=== PATIENT | female | born 1985 | race Caucasian/White ===

== ENCOUNTER 2016-12-17 19:53 | Inpatient (IN) | payer BC ==
[2016-12-17] MEDS ORDERED: Sodium Chloride 0.9% 2.5 ML Syringe FLUSH PRN (20:04)
[2016-12-17] MEDS ORDERED: Lidocaine 1% 50 ML MDV INJECT PRN (20:04)
[2016-12-17] MEDS ORDERED: Butorphanol 1 MG/ML SDV IVPUSH PRN (20:04)
[2016-12-17] MEDS ORDERED: Nalbuphine 10 MG/1 ML Vial IVPUSH PRN (20:04)
[2016-12-17] MEDS ORDERED: Sodium Chloride 0.9% 10 ML Syringe FLUSH PRN (20:04)
[2016-12-17] MEDS ORDERED: Water For Irrigation,Sterile 1,000 ML Container IRR PRN (20:04)
[2016-12-17] MEDS ORDERED: Misoprostol 200 MCG Tab PO PRN (20:04)
[2016-12-17] MEDS ORDERED: Carboprost Tromethamine 250 MCG/1 ML Amp IM PRN (20:04)
[2016-12-17] MEDS ORDERED: Methylergonovine 0.2 MG/1 ML Amp IM PRN (20:04)
[2016-12-17] MEDS ORDERED: Ampicillin 2 GM in Sodium Chloride 0.9% 50 ML IV ONE (20:15)
[2016-12-17] MEDS ORDERED: Oxytocin/0.9 % Sodium Chloride 30 UNIT/500 ML BAG IV SCH ×2 (20:15→22:30)
[2016-12-17] MEDS: Lactated Ringers 1,000 ML IV SCH ×3 (20:17→21:33)
[2016-12-17] MEDS ORDERED: Ampicillin 2 GM in Sodium Chloride 0.9% 100 ML IV ONE ×2 (20:27→20:29)
--- NOTE | 2016-12-17 20:39 | PCM.PREANE ---
Preanesthetic Assessment - Procedure Proposed Procedure: ADRI - Anesthesia/Transfusion/Family Hx Anesthesia History: No Prior Anesthesia Other Type of Anesthesia Reaction Comment: Denies any known problems in past Family History of Anesthesia Reaction: No - Review of Systems General: No Symptoms Pulmonary: No Symptoms Cardiovascular: No Symptoms Gastrointestinal: No Symptoms Neurological: No Symptoms Other: Reports: None - Physical Assessment Height: 1.75 m Weight: 84.368 kg ASA Class: 1 Mental Status: Alert & Oriented x3 Airway Class: Mallampati = 2 Dentition: Reports: Normal Dentition Thyro-Mental Finger Breadths: 3 Mouth Opening Finger Breadths: 4 ROM/Head Extension: Full Lungs: Clear to Auscultation, Normal Respiratory Effort Cardiovascular: Regular Rate, Regular Rhythm - Lab Values: Laboratory Last Values WBC 12.19 K/uL (4.0-11.0) H 12/17/16 20:17 RBC 3.86 M/uL (4.30-5.90) L 12/17/16 20:17 Hgb 12.4 g/dL (12.0-16.0) 12/17/16 20:17 Hct 35.3 % (36.0-46.0) L 12/17/16 20:17 MCV 91.5 fL (80.0-98.0) 12/17/16 20:17 MCH 32.1 pg (27.0-32.0) H 12/17/16 20:17 MCHC 35.1 g/dL (31.0-37.0) 12/17/16 20:17 RDW Std Deviation 43.7 fl (28.0-62.0) 12/17/16 20:17 RDW Coeff of Tomas 13 % (11.0-15.0) 12/17/16 20:17 Plt Count 207 K/uL (150-400) 12/17/16 20:17 MPV 11.00 fL (7.40-12.00) 12/17/16 20:17 Nucleated RBC % 0.0 /100WBC 12/17/16 20:17 Nucleated RBCs # 0 K/uL 12/17/16 20:17 - Allergies Allergies/Adverse Reactions: Allergies Allergy/AdvReac Type Severity Reaction Status Date / Time nickel Allergy Itching Verified 12/13/14 14:17 Oral Pain medication Allergy Vomiting Uncoded 10/07/15 14:17 - Blood Blood Available: Yes Product(s) Available: PRBC - Anesthesia Plan Pre-Op Medication Ordered: None - Acknowledgements Anesthesia Type Planned: Epidural Pt an Appropriate Candidate for the Planned Anesthesia: Yes Alternatives and Risks of Anesthesia Discussed w Pt/Guardian: Yes Pt/Guardian Understands and Agrees with Anesthesia Plan: Yes PreAnesthesia Questionnaire - Past Health History Medical/Surgical History: Denies Medical/Surgical History HEENT History: Reports: None Cardiovascular History: Reports: None Respiratory History: Reports: None Gastrointestinal History: Reports: None Genitourinary History: Reports: None POLICE ARTIST History: Reports: Other OB/BYN History: LMP 12/09/14 Musculoskeletal History: Reports: None Other Musculoskeletal History: hx: fractured Left clavicle, Femur, Ankle, Toe Psychiatric History: Reports: None Other Psychiatric History: 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), ADD Endocrine/Metabolic History: Reports: None Hematologic History: Reports: None - Past Surgical History Head Surgeries/Procedures: Reports: None Other HEENT Surgeries/Procedures: Spring teeth - SUBSTANCE USE Smoking Status *Q: Never Smoker Recreational Drug Use History: No - HOME MEDS Home Medications: Home Meds Dextroamphetamine/Amphetamine [Dextroamp-Amphet ER] 1 tab PO DAILY 12/13/14 [ History] Multivitamin [Multi-Vitamin Daily] 1 tab PO DAILY 12/13/14 [History] Acetaminophen/HYDROcodone [[place] 325-5 MG] 1 - 2 tab PO Q4H PRN #80 tablet 12/15 [Rx] - CURRENT (IN HOUSE) MEDS Current Meds: Current Medications Butorphanol Tartrate (Stadol) 1 mg IVPUSH Q1H PRN PRN Reason: Pain Carboprost Tromethamine (Hemabate Ds) 250 mcg IM ASDIRECTED PRN PRN Reason: Post Hemorrhage Ampicillin Sodium 1 gm/ Sodium (Chloride) 50 mls @ 100 mls/hr IV Q4H GIUSEPPE Lactated Ringer's (Ringers, Lactated) 1,000 mls @ 150 mls/hr IV ASDIRECTED GIUSEPPE Oxytocin/Sodium Chloride (Oxytocin 30 Unit/500 Ml-Ns) 30 unit in 500 mls @ 999 mls/hr IV TITRATE GIUSEPPE Ampicillin Sodium 2 gm/ Sodium (Chloride) 100 mls @ 200 mls/hr IV ONETIME ONE Stop: 12/17/16 20:44 Last Admin: 12/17/16 20:30 Dose: 200 mls/hr Lidocaine HCl (Xylocaine 1%) 50 ml INJECT .ONCE PRN PRN Reason: Laceration repair Methylergonovine Maleate (Methergine) 0.2 mg IM ASDIRECTED PRN PRN Reason: Post Hemorrhage Misoprostol (Cytotec) 200 mcg PO .ONCE PRN PRN Reason: Post Hemorrhage Nalbuphine HCl (Nubain) 10 mg IVPUSH Q1H PRN PRN Reason: Pain (severe 7-10) Sodium Chloride (Saline Flush) 10 ml FLUSH ASDIRECTED PRN PRN Reason: Keep Vein Open Sodium Chloride (Saline Flush) 2.5 ml FLUSH ASDIRECTED PRN PRN Reason: Keep Vein Open Sterile Water (Sterile Water For Irrigation) 1,000 ml IRR ASDIRECTED PRN PRN Reason: delivery Discontinued Medications Ampicillin Sodium 2 gm/ Sodium (Chloride) 50 mls @ 100 mls/hr IV ONETIME ONE Stop: 12/17/16 20:44 Ampicillin Sodium 2 gm/ Sodium (Chloride) 100 mls @ 200 mls/hr IV ONETIME ONE Stop: 12/17/16 20:44
[2016-12-17] MEDS ORDERED: Ropivacaine HCl/PF 100 ML ONE (20:40)
[2016-12-17] MEDS ORDERED: fentaNYL 100 MCG/2 ML SDV ONE (20:40)
[2016-12-17] MEDS ORDERED: Misoprostol 25 MCG (1/4 of 100 MCG) Tab VAG PRN (22:27)
[2016-12-17] MEDS ORDERED: Terbutaline 1 MG/ML SDV SUBCUT PRN (22:27)
[2016-12-17] MEDS ORDERED: Misoprostol 25 MCG (1/4 of 100 MCG) Tab VAG SCH (22:30)
[2016-12-18] MEDS ORDERED: Ampicillin 1 GM in Sodium Chloride 0.9% 50 ML IV SCH ×2
[2016-12-18] MEDS: Lactated Ringers 1,000 ML IV SCH (01:33)
[2016-12-18] MEDS ORDERED: Bisacodyl 10 MG Supp RECTAL PRN (03:22)
[2016-12-18] MEDS ORDERED: oxyCODONE 5 MG Tab PO PRN (03:22)
[2016-12-18] MEDS ORDERED: Ibuprofen 400 MG Tab PO PRN (03:22)
[2016-12-18] MEDS ORDERED: Benzocaine/Menthol 20%-0.5% Spray 78 GM Cannister TOP PRN (03:22)
[2016-12-18] MEDS ORDERED: Acetaminophen 500 MG Tab PO PRN (03:22)
[2016-12-18] MEDS: Witch Hazel Medicated Pads 40/Jar TOP PRN (04:45)
[2016-12-18] MEDS: Lanolin 100% Cream 7 GM Tube TOP PRN (04:46)
[2016-12-18] MEDS: Ibuprofen 800 MG Tab PO PRN ×3 (04:47→16:54)
--- NOTE | 2016-12-18 06:04 | OR ---
SURGEON: Sushma Rene MD DATE OF PROCEDURE: 12/18/2016 DELIVERY NOTE PREOPERATIVE DIAGNOSES: 1. Term at 39 weeks and 2 days. 2. Spontaneous labor. 3. GBS positive. POSTOPERATIVE DIAGNOSES: 1. Term at 39 weeks and 2 days. 2. Spontaneous labor. 3. GBS positive. 4. Delivered. PROCEDURE: 1. Vacuum-assisted vaginal delivery. 2. Repair of third-degree perineal laceration, Type 3C. ANESTHESIA: Epidural. ESTIMATED BLOOD LOSS: 200 mL. COMPLICATIONS: None. DISPOSITION: Mother and baby stable in Labor and Delivery room, [facility]. FINDINGS: Male , weight 3660grams, Apgars 9 and 9 at 1 and 5 minutes respectively. Grossly normal placenta with 3-vessel cord. Midline third-degree laceration, type 3C. BRIEF HISTORY: Sugar is a primigravida who was admitted at 39 weeks and 1 day gestation with a history of regular contraction with mild spotting. Denied leakage of fluid and reported active status. was conceived via IVF. Otherwise, her care was uncomplicated. She is GBS positive. PROCEDURE IN DETAIL: On admission at 8 p.m. on the 17 of December, she was found to be 6 cm dilated, 100% effaced, at station +1, with intact membrane. She was admitted,routine intrapartum labs were drawn and antibiotics, Ampicillin was commenced for GBS prophylaxis. The patient requested and received epidural for pain management. Shortly after the epidural was placed, she was re-examined and found to be 8 cm dilated with bulging membrane, spontaneous rupture of membranes occurred with clear amniotic fluid. She progressed to full dilatation and commenced active pushing. With pushing, she was noted to have recurrent late decelerations with slow recovery. She continued to push but maternal effort was not great, she eventually brought the baby's head down to a +3 station after approximately 2 hours of pushing, but became quite exhausted and just could not move the head further than +3 station. The strip continued to be a category 2 with late decelerations noted. Discussed with the patient and recommended a vacuum extraction due to non-reassuring heart tracing in second stage of labor with maternal exhaustion,the patient readily accepted. Risks of vacuum extraction including but not limited to perineal laceration, cephalhematoma, scalp injuries were discussed with the patient. Dr. Jeffrey, the personal carer video control operator, was present in the room. I re-examined the patient, confirming position of DARRIN at +3 station. The Nunez bulb was deflated and removed. She was set up for delivery in modified dorsal lithotomy position. The kiwi vacuum cup was applied on the flexion point of the head at 0229 hours.Coordinating her with contractions and expulsive effort, gentle traction was applied along the pelvic curve. Delivery of head was achieved with the second contraction at 0231 hours with no popoffs. Loose nuchal cord was reduced. The anterior and the posterior shoulders were delivered without difficulty. Baby was vigorous and cried spontaneously at . The baby was delivered onto the maternal abdomen with Dr. Jeffrey's consent. Delayed cord clamping was performed, cord was then double clamped and subsequently cut by the father of the baby. Cord blood and gas samples were obtained. With delivery of the infant, oxytocin infusion, titration was commenced for active management of third stage of labor. Placenta was delivered by controlled cord traction and appeared to be complete and intact. Examination of the perineum revealed a midline third-degree laceration involving the external sphincter and the internal sphincter. The edges of the internal sphincter were identified and this was reapproximated with 3-0 Vicryl using 2 interrupted stitches. The fibers of the external sphincter were identified, and using end-to-end technique, these fibers were reapproximated with 3-0 PDS sutures placing 3 stitches. The rest of the laceration was repaired in a routine fashion in 3 layers using 2-0 Vicryl suture. Continuous nonlocking stitches were used to reapproximate the vaginal wall and interrupted stitches were used to approximate the perineal muscles. Subcuticular stitches were used to repair the skin. Rectal exam was performed and good anal sphincter tone was noted. Uterine massage was performed and the uterus was found to be well contracted below the umbilicus The patient tolerated the procedure well. Sponge, instrument, and needle counts were correct at the end of the procedure. ADUMVIV / MODL /[id number] MTDHamilton
--- NOTE | 2016-12-18 07:50 | PCM48HPAN ---
Post Anesthesia Note - EVALUATION WITHIN 48HRS OF ANESTHETIC Vital Signs in Normal Range: Yes Patient Participated in Evaluation: Yes Respiratory Function Stable: Yes Airway Patent: Yes Cardiovascular Function Stable: Yes Hydration Status Stable: Yes Pain Control Satisfactory: Yes Nausea and Vomiting Control Satisfactory: Yes Mental Status Recovered: Yes
--- NOTE | 2016-12-18 08:45 | PCM.PNPP ---
- General Info Date of Service: 12/18/16 Functional Status: Reports: Pain Controlled, Tolerating Diet. Denies: Urinating (difficulty urinating feels that bladder is very full.) - Review of Systems General: Reports: No Symptoms HEENT: Reports: No Symptoms Pulmonary: Reports: No Symptoms Cardiovascular: Reports: No Symptoms Gastrointestinal: Reports: No Symptoms Genitourinary: Reports: No Symptoms Musculoskeletal: Reports: No Symptoms Skin: Reports: No Symptoms Neurological: Reports: No Symptoms Psychiatric: Reports: No Symptoms - Patient Data Vital Signs - Most Recent: Last Vital Signs Temp 37.3 C 12/18/16 06:10 Pulse 60 12/18/16 06:10 Resp 18 12/18/16 06:10 BP 97/43 L 12/18/16 06:10 Pulse Ox 100 12/18/16 06:10 Weight - Most Recent: 84.368 kg I&O - Last 24 Hours: Intake & Output 12/17/16 12/18/16 12/18/16 22:59 06:59 14:59 Intake Total 2100 1150 Balance 2100 1150 Lab Results - Last 24 Hours: Laboratory Results - last 24 hr 12/17/16 12/17/16 Range/Units 20:17 20:17 WBC 12.19 H (4.0-11.0) K/uL RBC 3.86 L (4.30-5.90) M/uL Hgb 12.4 (12.0-16.0) g/dL Hct 35.3 L (36.0-46.0) % MCV 91.5 (80.0-98.0) fL MCH 32.1 H (27.0-32.0) pg MCHC 35.1 (31.0-37.0) g/dL RDW Std Deviation 43.7 (28.0-62.0) fl RDW Coeff of Tomas 13 (11.0-15.0) % Plt Count 207 (150-400) K/uL MPV 11.00 (7.40-12.00) fL Nucleated RBC % 0.0 /100WBC Nucleated RBCs # 0 K/uL Blood Type O POSITIVE Antibody Screen NEGATIVE Med Orders - Current: Current Medications Acetaminophen (Tylenol Extra Strength) 500 mg PO Q4H PRN PRN Reason: Pain Acetaminophen (Tylenol Extra Strength) 1,000 mg PO Q4H PRN PRN Reason: Pain Benzocaine/Menthol (Dermoplast Pain Relief 20%-0.5% [place]) 78 gm TOP ASDIRECTED PRN PRN Reason: Perineal Comfort Measure Last Admin: 12/18/16 04:46 Dose: 1 canister Bisacodyl (Dulcolax) 10 mg RECTAL .ONCE PRN PRN Reason: Constipation Docusate Sodium (Colace) 100 mg PO BID [facility] Emollient Ointment (Lansinoh Hpa) 0 gm TOP ASDIRECTED PRN PRN Reason: Sore Nipples Last Admin: 12/18/16 04:46 Dose: 1 tube Ibuprofen (Motrin) 400 mg PO Q4H PRN PRN Reason: Pain Ibuprofen (Motrin) 800 mg PO Q6H PRN PRN Reason: Pain Last Admin: 12/18/16 04:47 Dose: 800 mg Oxycodone HCl (Oxycodone) 5 mg PO Q2H PRN PRN Reason: Pain Witch Casandra (Tucks) 1 pad TOP ASDIRECTED PRN PRN Reason: comfort care Last Admin: 12/18/16 04:45 Dose: 1 tub Discontinued Medications Butorphanol Tartrate (Stadol) 1 mg IVPUSH Q1H PRN PRN Reason: Pain Carboprost Tromethamine (Hemabate Ds) 250 mcg IM ASDIRECTED PRN PRN Reason: Post Hemorrhage Fentanyl (Sublimaze) Confirm Administered Dose 100 mcg .ROUTE .STK-MED ONE Stop: 12/17/16 20:41 Ampicillin Sodium 1 gm/ Sodium (Chloride) 50 mls @ 100 mls/hr IV Q4H [facility] Last Admin: 12/18/16 00:03 Dose: 100 mls/hr Lactated Ringer's (Ringers, Lactated) 1,000 mls @ 150 mls/hr IV ASDIRECTED [facility] Last Admin: 12/18/16 01:33 Dose: 250 mls/hr Oxytocin/Sodium Chloride (Oxytocin 30 Unit/500 Ml-Ns) 30 unit in 500 mls @ 999 mls/hr IV TITRATE [facility] Last Admin: 12/18/16 02:32 Dose: 999 mls/hr Ampicillin Sodium 2 gm/ Sodium (Chloride) 50 mls @ 100 mls/hr IV ONETIME ONE Stop: 12/17/16 20:44 Ampicillin Sodium 2 gm/ Sodium (Chloride) 100 mls @ 200 mls/hr IV ONETIME ONE Stop: 12/17/16 20:44 Ampicillin Sodium 2 gm/ Sodium (Chloride) 100 mls @ 200 mls/hr IV ONETIME ONE Stop: 12/17/16 20:44 Last Admin: 12/17/16 20:30 Dose: 200 mls/hr Ropivacaine (Naropin 0.2%) Confirm Administered Dose 100 mls @ as directed .ROUTE .STK-MED ONE Stop: 12/17/16 20:41 Oxytocin/Sodium Chloride (Oxytocin 30 Unit/500 Ml-Ns) 30 unit in 500 mls @ 2 mls/hr IV TITRATE GIUSEPPE; 2 MUNITS/MIN PRN Reason: Protocol Lidocaine HCl (Xylocaine 1%) 50 ml INJECT .ONCE PRN PRN Reason: Laceration repair Methylergonovine Maleate (Methergine) 0.2 mg IM ASDIRECTED PRN PRN Reason: Post Hemorrhage Misoprostol (Cytotec) 200 mcg PO .ONCE PRN PRN Reason: Post Hemorrhage Misoprostol (Cytotec) 25 mcg VAG .ONCE GIUSEPPE Misoprostol (Cytotec) 25 mcg VAG Q4H PRN PRN Reason: Cervical Ripening Nalbuphine HCl (Nubain) 10 mg IVPUSH Q1H PRN PRN Reason: Pain (severe 7-10) Sodium Chloride (Saline Flush) 10 ml FLUSH ASDIRECTED PRN PRN Reason: Keep Vein Open Sodium Chloride (Saline Flush) 2.5 ml FLUSH ASDIRECTED PRN PRN Reason: Keep Vein Open Sterile Water (Sterile Water For Irrigation) 1,000 ml IRR ASDIRECTED PRN PRN Reason: delivery Terbutaline Sulfate (Brethine) 0.25 mg SUBCUT ASDIRECTED PRN PRN Reason: Tacysystole - Infant Interaction Disposition, : [place] in Room with Family Interaction: Holding Feeding: Breastfed ; Nursed Well Support Person: - Recovery Exam Fundal Tone: Firm Fundal Level: Unable to Assess (due to bladder being very full) Fundal Placement: Midline Lochia Amount: Scant Lochia Color: Rubra/Red Perineum Description: Other (see below) Other Perinuem Description: mild swelling to perineum Episiotomy/Laceration: Approximated Bladder Status: Voiding - Exam General: Alert, Oriented HEENT: Pupils Equal Neck: Supple Lungs: Normal Respiratory Effort GI/Abdominal Exam: Soft, Non-Tender, No Organomegaly, No Mass Extremities: Normal Inspection, Normal Range of Motion, Non-Tender Skin: Warm, Dry, Intact Neurological: No New Focal Deficit Psy/Mental Status: Alert, Normal Affect, Normal Mood - Problem List & Annotations (1) Vaginal delivery SNOMED Code(s): 436465165 Code(s): O80 - ENCOUNTER FOR FULL-TERM UNCOMPLICATED DELIVERY Status: Acute Current Visit: Yes - Problem List Review Problem List Initiated/Reviewed/Updated: Yes - Assessment Assessment:: PPD #0 after , minimal lochia, some urinary retention at this time. - Plan Plan:: Proceed with straight catheterization if unable to void later today, will start Bethanechol. Continue care, anticipate discharge tomorrow.
[2016-12-18] MEDS: Docusate Sodium 100 MG Cap PO SCH ×2 (09:09→20:35)
[2016-12-18] MEDS: Acetaminophen 500 MG Tab PO PRN ×2 (13:06→20:35)
--- NOTE | 2016-12-19 08:07 | PCM.PNPP ---
- General Info Date of Service: 12/19/16 Functional Status: Reports: Pain Controlled, Tolerating Diet, Ambulating, Urinating (has to use positional changes to empty completely. ) - Review of Systems General: Reports: No Symptoms HEENT: Reports: No Symptoms Pulmonary: Reports: No Symptoms Cardiovascular: Reports: No Symptoms Gastrointestinal: Reports: No Symptoms Genitourinary: Reports: No Symptoms Musculoskeletal: Reports: No Symptoms Skin: Reports: No Symptoms Neurological: Reports: No Symptoms Psychiatric: Reports: No Symptoms - Patient Data Vital Signs - Most Recent: Last Vital Signs Temp 36.6 C 12/19/16 04:15 Pulse 63 12/19/16 04:15 Resp 16 12/19/16 04:15 BP 107/62 12/19/16 04:15 Pulse Ox 98 12/19/16 04:15 Weight - Most Recent: 84.368 kg Lab Results - Last 24 Hours: Laboratory Results - last 24 hr 12/19/16 Range/Units 05:07 Hgb 10.3 L (12.0-16.0) g/dL Hct 30.9 L (36.0-46.0) % Med Orders - Current: Current Medications Acetaminophen (Tylenol Extra Strength) 500 mg PO Q4H PRN PRN Reason: Pain Acetaminophen (Tylenol Extra Strength) 1,000 mg PO Q4H PRN PRN Reason: Pain Last Admin: 12/18/16 20:35 Dose: 1,000 mg Benzocaine/Menthol (Dermoplast Pain Relief 20%-0.5% [place]) 78 gm TOP ASDIRECTED PRN PRN Reason: Perineal Comfort Measure Last Admin: 12/18/16 04:46 Dose: 1 canister Bethanechol Chloride (Urecholine) 25 mg PO ONETIME PRN PRN Reason: urinary retention Bisacodyl (Dulcolax) 10 mg RECTAL .ONCE PRN PRN Reason: Constipation Docusate Sodium (Colace) 100 mg PO BID GIUSEPPE Last Admin: 12/18/16 20:35 Dose: 100 mg Emollient Ointment (Lansinoh Hpa) 0 gm TOP ASDIRECTED PRN PRN Reason: Sore Nipples Last Admin: 12/18/16 04:46 Dose: 1 tube Ibuprofen (Motrin) 400 mg PO Q4H PRN PRN Reason: Pain Ibuprofen (Motrin) 800 mg PO Q6H PRN PRN Reason: Pain Last Admin: 12/19/16 00:00 Dose: 800 mg Oxycodone HCl (Oxycodone) 5 mg PO Q2H PRN PRN Reason: Pain Witch Casandra (Tucks) 1 pad TOP ASDIRECTED PRN PRN Reason: comfort care Last Admin: 12/18/16 04:45 Dose: 1 tub Discontinued Medications Butorphanol Tartrate (Stadol) 1 mg IVPUSH Q1H PRN PRN Reason: Pain Carboprost Tromethamine (Hemabate Ds) 250 mcg IM ASDIRECTED PRN PRN Reason: Post Hemorrhage Fentanyl (Sublimaze) Confirm Administered Dose 100 mcg .ROUTE .STK-MED ONE Stop: 12/17/16 20:41 Ampicillin Sodium 1 gm/ Sodium (Chloride) 50 mls @ 100 mls/hr IV Q4H GIUSEPPE Last Admin: 12/18/16 00:03 Dose: 100 mls/hr Lactated Ringer's (Ringers, Lactated) 1,000 mls @ 150 mls/hr IV ASDIRECTED GIUSEPPE Last Admin: 12/18/16 01:33 Dose: 250 mls/hr Oxytocin/Sodium Chloride (Oxytocin 30 Unit/500 Ml-Ns) 30 unit in 500 mls @ 999 mls/hr IV TITRATE GIUSEPPE Last Admin: 12/18/16 02:32 Dose: 999 mls/hr Ampicillin Sodium 2 gm/ Sodium (Chloride) 50 mls @ 100 mls/hr IV ONETIME ONE Stop: 12/17/16 20:44 Ampicillin Sodium 2 gm/ Sodium (Chloride) 100 mls @ 200 mls/hr IV ONETIME ONE Stop: 12/17/16 20:44 Ampicillin Sodium 2 gm/ Sodium (Chloride) 100 mls @ 200 mls/hr IV ONETIME ONE Stop: 12/17/16 20:44 Last Admin: 12/17/16 20:30 Dose: 200 mls/hr Ropivacaine (Naropin 0.2%) Confirm Administered Dose 100 mls @ as directed .ROUTE .STK-MED ONE Stop: 12/17/16 20:41 Oxytocin/Sodium Chloride (Oxytocin 30 Unit/500 Ml-Ns) 30 unit in 500 mls @ 2 mls/hr IV TITRATE GIUSEPPE; 2 MUNITS/MIN PRN Reason: Protocol Lidocaine HCl (Xylocaine 1%) 50 ml INJECT .ONCE PRN PRN Reason: Laceration repair Methylergonovine Maleate (Methergine) 0.2 mg IM ASDIRECTED PRN PRN Reason: Post Hemorrhage Misoprostol (Cytotec) 200 mcg PO .ONCE PRN PRN Reason: Post Hemorrhage Misoprostol (Cytotec) 25 mcg VAG .ONCE GIUSEPPE Misoprostol (Cytotec) 25 mcg VAG Q4H PRN PRN Reason: Cervical Ripening Nalbuphine HCl (Nubain) 10 mg IVPUSH Q1H PRN PRN Reason: Pain (severe 7-10) Sodium Chloride (Saline Flush) 10 ml FLUSH ASDIRECTED PRN PRN Reason: Keep Vein Open Sodium Chloride (Saline Flush) 2.5 ml FLUSH ASDIRECTED PRN PRN Reason: Keep Vein Open Sterile Water (Sterile Water For Irrigation) 1,000 ml IRR ASDIRECTED PRN PRN Reason: delivery Terbutaline Sulfate (Brethine) 0.25 mg SUBCUT ASDIRECTED PRN PRN Reason: Tacysystole - Infant Interaction Disposition, : [place] in Room with Family Interaction: Holding Infant Infant Feeding: Breastfed Infant; Nursed Well Support Person: - Recovery Exam Fundal Tone: Firm Fundal Level: 1 Fingerbreadths Below Umbilicus Fundal Placement: Midline Lochia Amount: Scant Lochia Color: Rubra/Red Perineum Description: Intact, Minimal Bruising/Swelling Other Perinuem Description: mild swelling to perineum Episiotomy/Laceration: Approximated Bladder Status: Voiding Urinary Elimination: Straight Catheterization - Exam General: Alert, Oriented HEENT: Pupils Equal Neck: Supple Lungs: Normal Respiratory Effort GI/Abdominal Exam: Soft, Non-Tender, No Organomegaly, No Distention, No Abnormal Bruit, No Mass, Pelvis Stable Extremities: Normal Inspection, Normal Range of Motion, Non-Tender, No Pedal Edema, Normal Capillary Refill Skin: Warm, Dry, Intact Wound/Incisions: Healing Well Neurological: No New Focal Deficit Psy/Mental Status: Alert, Normal Affect, Normal Mood - Problem List & Annotations (1) Vaginal delivery SNOMED Code(s): 446326627 Code(s): O80 - ENCOUNTER FOR FULL-TERM UNCOMPLICATED DELIVERY Status: Acute Current Visit: Yes - Problem List Review Problem List Initiated/Reviewed/Updated: Yes - My Orders Last 24 Hours: My Active Orders 12/18/16 08:47 Bethanechol [Urecholine] 25 mg PO ONETIME PRN - Assessment Assessment:: PPD #1 after , minimal lochia, pain well controlled with non-narcotic medications, well , would like to go home today. - Plan Plan:: Discharge instructions reviewed, continue carl-care at home, continue vitamins while breast feeding.
[2016-12-19 08:21] VITALS: BP 116/64
[2016-12-19] MEDS: Docusate Sodium 100 MG Cap PO SCH (08:21)
[2016-12-19] MEDS: Ibuprofen 800 MG Tab PO PRN ×2 (08:21)
[2016-12-19] MEDS: Acetaminophen 500 MG Tab PO PRN (10:26)
[2016-12-19] MEDS: Lanolin 100% Cream 7 GM Tube TOP PRN (10:30)
[2016-12-19] MEDS: Witch Hazel Medicated Pads 40/Jar TOP PRN (10:31)
== END 2016-12-19 11:20 | disposition home or self-care (01) | DRG 542 ==
LOC: MW.OBCHECK 19:53 → MW.OB 19:55 → MW.OBCHECK 20:03 → MW.OB 20:04 → OBSVTOIN 12-18 02:31 → MW.OB 12-18 05:40
PROVIDERS: ADMIT Obstetrics & Gynecology; ATTEND Obstetrics & Gynecology
PROC: 10D07Z6 Extraction of Products of Conception, Vacuum, Via Natural or Artificial Opening (ICD-10-PCS; principal; 2016-12-18)
PROC: 0DQR0ZZ Repair Anal Sphincter, Open Approach (ICD-10-PCS; 2016-12-18)
PROC: 00HU33Z Insertion of Infusion Device into Spinal Canal, Percutaneous Approach (ICD-10-PCS; 2016-12-18)
PROC: 3E0R3BZ Introduction of Anesthetic Agent into Spinal Canal, Percutaneous Approach (ICD-10-PCS; 2016-12-18)
DX: O70.23 Third degree perineal laceration during delivery, IIIc (principal); O69.81X0 Labor and delivery complicated by cord around neck, without compression, not applicable or unspecified; Z3A.39 39 weeks gestation of pregnancy; Z37.0 Single live birth; O99.89 Other specified diseases and conditions complicating pregnancy, childbirth and the puerperium; R33.9 Retention of urine, unspecified; Z91.09 Other allergy status, other than to drugs and biological substances
CPT/HCPCS: 00796; 01967; 36415; 51701; 59025; 59409; 85014; 85018; 85027; 86850; 86900; 86901; A9270-GY; J0290; J2590; J7030; J7050; J7120

== ENCOUNTER 2017-09-20 00:18 | Emergency (ER) | payer BC ==
[2017-09-20 00:32] VITALS: BP 126/61
[2017-09-20] MEDS ORDERED: Diphtheria,Pertussis(Acell),Tetanus Vaccine 0.5 ML Syringe IM ONE (00:39)
--- NOTE | 2017-09-20 01:02 | EDM.PDOC ---
ED HPI GENERAL MEDICAL PROBLEM - General Chief Complaint: Lower Extremity Injury/Pain Stated Complaint: INJURY TO RIGHT BIG TOE Time Seen by Provider: 09/20/17 00:31 - History of Present Illness INITIAL COMMENTS - FREE TEXT/NARRATIVE: HISTORY AND PHYSICAL: History of present illness: The patient is a 32-year-old female who presents with complaints of disruption of her toenail from the nailbed on the right great toe that happened earlier this evening on a stroller. The patient tells me the toenail on the right great toe has never been normal and she has had multiple issues with ingrown toenails and has had procedures to extract them and as a result of that the toenail never grows normally and is always partially lifted from the nailbed. Today she caught it on a stroller and it pulled up more than usual and she is experiencing significant pain. She has no injury to the bony toe and no other injuries on her foot. Review of systems: As per history of present illness and below otherwise all systems reviewed and negative. Past medical history: As per history of present illness and as reviewed below otherwise noncontributory. Surgical history: As per history of present illness and as reviewed below otherwise noncontributory. Social history: No reported history of drug or alcohol abuse. Family history: As per history of present illness and as reviewed below otherwise noncontributory. Physical exam: General: Well-developed well-nourished female who is somewhat anxious on my evaluation and vital signs are noted by me HEENT: Atraumatic, normocephalic, negative for conjunctival pallor or scleral icterus, mucous membranes moist, throat clear, neck supple, nontender, trachea midline. Lungs: Clear to auscultation, breath sounds equal bilaterally, chest nontender. Heart: S1S2, regular rate and rhythm no overt murmurs Abdomen: Soft, nondistended, nontender. NABS Pelvis: Deferred Genitourinary: Deferred. Rectal: Deferred. Extremities: Atraumatic with full range of motion of all extremities with the exception of the right great toe where there is no bony deformity but there is some soft tissue swelling at the distalmost portion of the soft tissue and then nail of the right great toe is sitting at an approximately 45 degree angle from the nail base. There is some dried blood seen at the base of the soft tissue but the proximal aspect of the nail is in place under the cuticle. There is tenderness in the area and the patient can barely tolerate any palpation,, negative for cords or calf pain. Neurovascular unremarkable. Neuro: Awake, alert, oriented. Cranial nerves II through XII unremarkable. Cerebellum unremarkable. Motor and sensory unremarkable throughout. Exam nonfocal. Diagnostics: Patient states that she did not hit the toe and does not want an x-ray. Therapeutics: Tdap, digital block with lidocaine without epinephrine, wound care Procedure note: After the block was explained to the patient alcohol prep was placed and 1% lidocaine without epinephrine was placed in a digital block fashion to the great toe. There were no complications and the patient tolerated the procedure well. Once that was done a toenail clipper was used to remove the ingrown portion of the toenail which was triangular in shape located at the medial aspect of the great toe. The nail was then replaced back up against the nailbed as best as possible and using Steri-Strips with adherent it was secured. A tube gauze dressing will be placed and the patient will be put on pain meds. The nailbed base was very well granulated and consistent with the patient's history that the toe nail is never adherent to it so I do not feel antibiotics are indicated and I discussed this with the patient. I advised the patient for follow-up in podiatry for definitive care of this toenail Impression: Right great toenail injury Definitive disposition and diagnosis as appropriate pending reevaluation and review of above. right big toe Pain Score (Numeric/FACES): 8 - Related Data Allergies Allergy/AdvReac Type Severity Reaction Status Date / Time nickel Allergy Itching Verified 12/17/16 22:57 Home Meds: Home Meds Ariane/Cell/Lipas/Malt/Prt/Lac/in [Digestive Enzymes Capsule] 1 cap PO DAILY [History] Fish Oil/[place]-3 Fatty Acids [Fish Oil 1,000 MG] 1 cap PO DAILY 12/17/16 [ History] L.acidoph,Paracasei, B.lactis [Probiotic] 1 cap PO DAILY 12/17/16 [History] Magnesium 30 mg PO DAILY 12/17/16 [History] Vit No.78/Iron/Fa [Prenatabs FA] 1 tab PO DAILY 09/20/17 [History] Past Medical History - Past Health History Medical/Surgical History: Denies Medical/Surgical History HEENT History: Reports: None Cardiovascular History: Reports: None Respiratory History: Reports: None Gastrointestinal History: Reports: None Genitourinary History: Reports: None 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 Musculoskeletal History: Reports: None Other Musculoskeletal History: hx: fractured Left clavicle, Femur, Ankle, Toe Psychiatric History: Reports: None Other Psychiatric History: 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), ADD Endocrine/Metabolic History: Reports: None Hematologic History: Reports: None - Past Surgical History Head Surgeries/Procedures: Reports: None Musculoskeletal Surgical History: Reports: None Social & Family History - Family History Family Medical History: Noncontributory Endocrine/Metabolic: Reports: Other (See Below) - Tobacco Use Smoking Status *Q: Never Smoker Second Hand Smoke Exposure: No - Caffeine Use Caffeine Use: Reports: Tea - Recreational Drug Use Recreational Drug Use: No Review of Systems - Review of Systems Review Of Systems: ROS reveals no pertinent complaints other than HPI. ED EXAM, GENERAL - Physical Exam Exam: See Below (See dictation) Course - Vital Signs Last Recorded V/S: Last Vital Signs Temp 36.6 C 09/20/17 00:27 Pulse 72 09/20/17 00:27 Resp 18 09/20/17 00:27 BP 126/61 09/20/17 00:27 Pulse Ox 97 09/20/17 00:27 - Orders/Labs/Meds Orders: Active Orders 24 hr Category Date Time Status Vaccines to be Administered [RC] PER UNIT ROUTINE Care 09/20/17 00:39 Active Meds: Medications Discontinued Medications Generic Name Dose Route Start Last Admin Trade Name Kwabena PRN Reason Stop Dose Admin Diphtheria/Tetanus/Acell Pertussis 0.5 ml 09/20/17 00:39 09/20/17 00:51 Adacel IM 09/20/17 00:40 0.5 ml .ONCE ONE Administration Lidocaine HCl 5 ml 09/20/17 00:49 Xylocaine-Mpf 1% INJECT 09/20/17 00:50 ONETIME ONE Departure - Departure Time of Disposition: 01:18 Disposition: Home, Self-Care 01 Condition: Good Clinical Impression: Injury of toenail of right foot Qualifiers: Encounter type: initial encounter Qualified Code(s): S99.921A - Unspecified injury of right foot, initial encounter - Discharge Information Referrals: David Jeffrey MD [Primary Care Provider] - Forms: ED Department Discharge Additional Instructions: The following information is given to patients seen in the emergency department who are being discharged to home. This information is to outline your options for follow-up care. We provide all patients seen in our emergency department with a follow-up referral. The need for follow-up, as well as the timing and circumstances, are variable depending upon the specifics of your emergency department visit. If you don't have a primary care physician on staff, we will provide you with a referral. We always advise you to contact your personal physician following an emergency department visit to inform them of the circumstance of the visit and for follow-up with them and/or the need for any referrals to a consulting specialist. The emergency department will also refer you to a specialist when appropriate. This referral assures that you have the opportunity for followup care with a specialist. All of these measure are taken in an effort to provide you with optimal care, which includes your followup. Under all circumstances we always encourage you to contact your private physician who remains a resource for coordinating your care. When calling for followup care, please make the office aware that this follow-up is from your recent emergency room visit. If for any reason you are refused follow-up, please contact the [facility] emergency department at and ask to speak to the emergency department charge nurse. [facility]- Podiatry [address] [place] [id number] Fax: [phone] Dr Dom Piper [address] [place] [id number] Howell in her clinic here at the hospital or Dr. Piper for reevaluation and further care of this toenail injury. Please keep dressing in place and remove or change if it gets dirty. Please leave Steri-Strips in place and return to ER as needed and as discussed. Please use Melville you have been given from [employer] for pain - My Orders Last 24 Hours: My Active Orders 09/20/17 00:39 Vaccines to be Administered [RC] PER UNIT ROUTINE - Assessment/Plan Last 24 Hours: My Active Orders 09/20/17 00:39 Vaccines to be Administered [RC] PER UNIT ROUTINE
== END 2017-09-20 01:32 | disposition home or self-care (01) ==
LOC: MW.ED 00:18
DX: S99.921A Unspecified injury of right foot, initial encounter (principal); Z23 Encounter for immunization; Z91.048 Other nonmedicinal substance allergy status; Z79.899 Other long term (current) drug therapy; X50.9XXA Other and unspecified overexertion or strenuous movements or postures, initial encounter
CPT/HCPCS: 90471; 90715; 99283-25

== ENCOUNTER 2018-05-25 18:00 | Emergency (ER) | payer BC ==
[2018-05-25 18:34] VITALS: BP 119/58
--- NOTE | 2018-05-25 18:38 | EDM.PDOC ---
ED HPI GENERAL MEDICAL PROBLEM - General Chief Complaint: ENT Problem Stated Complaint: SINUS INFECTION Time Seen by Provider: 05/25/18 18:23 - History of Present Illness INITIAL COMMENTS - FREE TEXT/NARRATIVE: HISTORY AND PHYSICAL: History of present illness: Patient's a 32-year-old white female presents with concern of facial pain and congestion she's had no fever chills nausea vomiting she denies any significant nasal discharge has been no trauma or other concerns Review of systems: As per history of present illness and below otherwise all systems reviewed and negative. Past medical history: As per history of present illness and as reviewed below otherwise noncontributory. Surgical history: As per history of present illness and as reviewed below otherwise noncontributory. Social history: No reported history of drug or alcohol abuse. Family history: As per history of present illness and as reviewed below otherwise noncontributory. Physical exam: HEENT: Atraumatic, normocephalic, pupils reactive, negative for conjunctival pallor or scleral icterus, mucous membranes moist, throat clear, neck supple, nontender, trachea midline. Tenderness over the frontal and maxillary sinuses to percussion Lungs: Clear to auscultation, breath sounds equal bilaterally, chest nontender. Heart: S1S2, regular, negative for clicks, rubs, or JVD. Abdomen: Soft, nondistended, nontender. Negative for masses or hepatosplenomegaly. Negative for costovertebral tenderness. Neuro: Awake, alert, oriented. Cranial nerves II through XII unremarkable. Cerebellum unremarkable. Motor and sensory unremarkable throughout. Exam nonfocal. Diagnostics: Deferred Therapeutics: None Impression: #1 sinusitis Definitive disposition and diagnosis as appropriate pending reevaluation and review of above. Generalized Pain Score (Numeric/FACES): 7 - Related Data Allergies Allergy/AdvReac Type Severity Reaction Status Date / Time nickel Allergy Itching Verified 05/25/18 18:27 Home Meds: Home Meds L.acidoph,Paracasei, B.lactis [Probiotic] 1 cap PO DAILY 12/17/16 [History] Vit No.78/Iron/Fa [Prenatabs FA] 1 tab PO DAILY 09/20/17 [History] Past Medical History - Past Health History Medical/Surgical History: Denies Medical/Surgical History HEENT History: Reports: None Cardiovascular History: Reports: None Respiratory History: Reports: None Gastrointestinal History: Reports: None Genitourinary History: Reports: None 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 Musculoskeletal History: Reports: None Other Musculoskeletal History: hx: fractured Left clavicle, Femur, Ankle, Toe Psychiatric History: Reports: None Other Psychiatric History: 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), ADD Endocrine/Metabolic History: Reports: None Hematologic History: Reports: None - Past Surgical History Head Surgeries/Procedures: Reports: None Musculoskeletal Surgical History: Reports: None Social & Family History - Family History Family Medical History: Noncontributory Endocrine/Metabolic: Reports: Other (See Below) - Caffeine Use Caffeine Use: Reports: Tea ED ROS GENERAL - Review of Systems Review Of Systems: ROS reveals no pertinent complaints other than HPI. ED EXAM, GENERAL - Physical Exam Exam: See Below (See dictation) Course - Vital Signs Last Recorded V/S: Last Vital Signs Temp 38.0 C 05/25/18 18:30 Pulse 100 05/25/18 18:30 Resp 16 05/25/18 18:30 BP 119/58 L 05/25/18 18:30 Pulse Ox 96 05/25/18 18:30 Departure - Departure Time of Disposition: 18:37 Disposition: Home, Self-Care 01 Condition: Good Clinical Impression: Sinusitis - Discharge Information Referrals: David Jeffrey MD [Primary Care Provider] - Additional Instructions: The following information is given to patients seen in the emergency department who are being discharged to home. This information is to outline your options for follow-up care. We provide all patients seen in our emergency department with a follow-up referral. The need for follow-up, as well as the timing and circumstances, are variable depending upon the specifics of your emergency department visit. If you don't have a primary care physician on staff, we will provide you with a referral. We always advise you to contact your personal physician following an emergency department visit to inform them of the circumstance of the visit and for follow-up with them and/or the need for any referrals to a consulting specialist. The emergency department will also refer you to a specialist when appropriate. This referral assures that you have the opportunity for followup care with a specialist. All of these measure are taken in an effort to provide you with optimal care, which includes your followup. Under all circumstances we always encourage you to contact your private physician who remains a resource for coordinating your care. When calling for followup care, please make the office aware that this follow-up is from your recent emergency room visit. If for any reason you are refused follow-up, please contact the [facility] emergency department at and asked to speak to the emergency department charge nurse. Augmentin Ultram as prescribed follow-up primary medical doctor as needed as discussed return as needed as discussed
== END 2018-05-25 19:27 | disposition home or self-care (01) ==
LOC: MW.ED 18:00
DX: J32.9 Chronic sinusitis, unspecified (principal); Z88.8 Allergy status to other drugs, medicaments and biological substances
CPT/HCPCS: 87804; 99283

== ENCOUNTER 2019-08-28 22:57 | Inpatient (IN) | payer BC ==
[2019-08-29] MEDS ORDERED: Sodium Chloride 0.9% 10 ML SDV IV PRN (00:38)
[2019-08-29] MEDS ORDERED: Sodium Chloride 0.9% 2.5 ML Syringe FLUSH PRN (00:38)
[2019-08-29] MEDS ORDERED: Tranexamic Acid 1,000 MG in Sodium Chloride 0.9% 100 ML IV PRN (00:38)
[2019-08-29] MEDS ORDERED: Nalbuphine 10 MG/1 ML Vial IVPUSH PRN (00:38)
[2019-08-29] MEDS ORDERED: Carboprost Tromethamine 250 MCG/1 ML Amp IM PRN (00:38)
[2019-08-29] MEDS ORDERED: Lidocaine 1% 50 ML MDV INJECT PRN (00:38)
[2019-08-29] MEDS ORDERED: Misoprostol 200 MCG Tab PO PRN (00:38)
[2019-08-29] MEDS ORDERED: Butorphanol 1 MG/ML SDV IVPUSH PRN (00:38)
[2019-08-29] MEDS ORDERED: Water For Irrigation,Sterile 1,000 ML Container IRR PRN (00:38)
[2019-08-29] MEDS ORDERED: Sodium Chloride 0.9% 10 ML Syringe FLUSH PRN (00:38)
[2019-08-29] MEDS ORDERED: Ondansetron 4 MG/2 ML SDV IVPUSH PRN (00:38)
[2019-08-29] MEDS ORDERED: Methylergonovine 0.2 MG/1 ML Amp IM PRN (00:38)
[2019-08-29] MEDS ORDERED: Oxytocin/0.9 % Sodium Chloride 30 UNIT/500 ML BAG IV SCH (00:45)
[2019-08-29] MEDS: Lactated Ringers 1,000 ML IV SCH ×2 (01:19→02:01)
[2019-08-29] MEDS ORDERED: fentaNYL 100 MCG/2 ML SDV ONE (01:46)
[2019-08-29] MEDS ORDERED: Ropivacaine HCl/PF 100 ML ONE (01:47)
--- NOTE | 2019-08-29 02:09 | PCM.PREANE ---
Preanesthetic Assessment - Anesthesia/Transfusion/Family Hx Anesthesia History: Prior Anesthesia Without Reaction Other Type of Anesthesia Reaction Comment: Denies any known problems in past Family History of Anesthesia Reaction: No Transfusion History: No Prior Transfusion(s) - Physical Assessment NPO Status Date: 08/28/19 NPO Status Time: 20:00 Height: 1.75 m Weight: 82.554 kg ASA Class: 1 - Lab Values: Laboratory Last Values WBC 12.30 K/uL (4.0-11.0) H 08/29/19 01:11 RBC 3.70 M/uL (4.30-5.90) L 08/29/19 01:11 Hgb 11.8 g/dL (12.0-16.0) L 08/29/19 01:11 Hct 34.5 % (36.0-46.0) L 08/29/19 01:11 MCV 93.2 fL (80.0-98.0) 08/29/19 01:11 MCH 31.9 pg (27.0-32.0) 08/29/19 01:11 MCHC 34.2 g/dL (31.0-37.0) 08/29/19 01:11 RDW Std Deviation 39.8 fl (28.0-62.0) 08/29/19 01:11 RDW Coeff of Tomas 12 % (11.0-15.0) 08/29/19 01:11 Plt Count 177 K/uL (150-400) 08/29/19 01:11 MPV 11.20 fL (7.40-12.00) 08/29/19 01:11 Blood Type O POSITIVE 08/29/19 01:11 Antibody Screen NEGATIVE 08/29/19 01:11 - Allergies Allergies/Adverse Reactions: Allergies Allergy/AdvReac Type Severity Reaction Status Date / Time nickel Allergy Itching Verified 05/25/18 18:27 - Acknowledgements Anesthesia Type Planned: Epidural Pt an Appropriate Candidate for the Planned Anesthesia: Yes Alternatives and Risks of Anesthesia Discussed w Pt/Guardian: Yes Pt/Guardian Understands and Agrees with Anesthesia Plan: Yes PreAnesthesia Questionnaire - Past Health History Medical/Surgical History: Denies Medical/Surgical History HEENT History: Reports: None Cardiovascular History: Reports: None Respiratory History: Reports: None Gastrointestinal History: Reports: None Genitourinary History: Reports: None 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 Musculoskeletal History: Reports: None Other Musculoskeletal History: hx: fractured Left clavicle, Femur, Ankle, Toe Psychiatric History: Reports: None Other Psychiatric History: 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), ADD Endocrine/Metabolic History: Reports: None Hematologic History: Reports: None - Infectious Disease History Infectious Disease History: Reports: Chicken Pox - Past Surgical History Head Surgeries/Procedures: Reports: None Musculoskeletal Surgical History: Reports: None - HOME MEDS Home Medications: Home Meds L.acidoph,Paracasei, B.lactis [Probiotic] 1 cap PO DAILY 12/17/16 [History] Vit No.78/Iron/Fa [Prenatabs FA] 1 tab PO DAILY 09/20/17 [History] - CURRENT (IN HOUSE) MEDS Current Meds: Current Medications Butorphanol Tartrate (Stadol) 1 mg IVPUSH Q1H PRN PRN Reason: Pain Carboprost Tromethamine (Hemabate Ds) 250 mcg IM ASDIRECTED PRN PRN Reason: Post Hemorrhage Lactated Ringer's (Ringers, Lactated) 1,000 mls @ 150 mls/hr IV ASDIRECTED GIUSEPPE Last Admin: 08/29/19 02:01 Dose: 999 mls/hr Documented by: Oxytocin/Sodium Chloride (Oxytocin 30 Unit/500 Ml-Ns) 30 unit in 500 mls @ 999 mls/hr IV TITRATE GIUSEPPE Tranexamic Acid 1,000 mg/ (Sodium Chloride) 110 mls @ 660 mls/hr IV ONETIME PRN PRN Reason: Bleeding Lidocaine HCl (Xylocaine 1%) 50 ml INJECT ONETIME PRN PRN Reason: Laceration repair Methylergonovine Maleate (Methergine) 0.2 mg IM ASDIRECTED PRN PRN Reason: Post Hemorrhage Misoprostol (Cytotec) 200 mcg PO ONETIME PRN PRN Reason: Post Hemorrhage Nalbuphine HCl (Nubain) 10 mg IVPUSH Q1H PRN PRN Reason: Pain (severe 7-10) Ondansetron HCl (Zofran) 4 mg IVPUSH Q4H PRN PRN Reason: Nausea/Vomiting Sodium Chloride (Saline Flush) 10 ml FLUSH ASDIRECTED PRN PRN Reason: Keep Vein Open Sodium Chloride (Saline Flush) 2.5 ml FLUSH ASDIRECTED PRN PRN Reason: Keep Vein Open Sodium Chloride (Normal Saline) 10 ml IV ASDIRECTED PRN PRN Reason: IV Use Sterile Water (Sterile Water For Irrigation) 1,000 ml IRR ASDIRECTED PRN PRN Reason: delivery Discontinued Medications Fentanyl (Sublimaze) Confirm Administered Dose 100 mcg .ROUTE .STK-MED ONE Stop: 08/29/19 01:47 Ropivacaine (Naropin 0.2%) Confirm Administered Dose 100 mls @ as directed .ROUTE .STK-MED ONE Stop: 08/29/19 01:48
--- NOTE | 2019-08-29 02:13 | PCM.PRNOTE ---
- Free Text/Narrative Note: Anes NOte Patient reuests epidural for L&D. Sitting position, Level L3-L4 midline approach. Sterile technique. Chloraprep scrub to lumbar area. Sterile fenestrated drape applied. Epidural space easily achieved single attempt using NEDRA technique. NEDRA at 3 cm. Cath threaded 5 cm with ease. Cath secured at skin using sterile clear adhesive dressing. Test 0157 Test 3 cc 1.5% lido with epi negative. 0200 Load 10 cc 0.2% ropiviciane with 1 mcg cc fentanyl in slow divided doses. 0204 Pump started with 90 cc same solution. Rate is 8 cc hr with 6 cc q 20 min prn bolus. Olga well. Time with patient [id number] Troy Weeks CITY ASSESSOR
[2019-08-29] MEDS ORDERED: Lanolin 100% Cream 7 GM Tube TOP PRN (05:14)
[2019-08-29] MEDS ORDERED: Acetaminophen 500 MG Tab PO PRN (05:14)
[2019-08-29] MEDS ORDERED: Witch Hazel Medicated Pads 40/Jar TOP PRN (05:14)
[2019-08-29] MEDS ORDERED: Benzocaine/Menthol 20%-0.5% Spray 78 GM Cannister TOP PRN (05:14)
[2019-08-29] MEDS ORDERED: Docusate Sodium 100 MG Cap PO PRN (05:14)
[2019-08-29] MEDS ORDERED: Ibuprofen 400 MG Tab PO PRN (05:14)
[2019-08-29] MEDS ORDERED: Bisacodyl 10 MG Supp RECTAL PRN (05:14)
--- NOTE | 2019-08-29 07:41 | OR ---
SURGEON: Willian Aparicio MD DATE OF PROCEDURE: 08/28/2019 INDICATION FOR PROCEDURE: A 33-year-old G2, P1-0-0-1, at 39 weeks and 2 days, presenting in early labor. She had regular contractions and made cervical change from 3 to 4 cm. The was conceived with frozen embryo transfer, otherwise was uncomplicated. She is GBS negative. She received an epidural for pain control and AROM for augmentation with clear fluid. The heart rate tracing was category 1. She progressed to fully dilated and began pushing with contractions. PREOPERATIVE DIAGNOSIS: Moore intrauterine at 39 weeks and 2 days. POSTOPERATIVE DIAGNOSIS: Moore intrauterine at 39 weeks and 2 days. PROCEDURE PERFORMED: Normal spontaneous vaginal delivery, repair of first-degree laceration. ANESTHESIA: Epidural. ANESTHESIOLOGIST: Dr. Pato Cam. FINDINGS: Viable male , score of 8 and 9. weight of 3090g. There was a loose body cord x2 that was reduced after delivery. DESCRIPTION OF PROCEDURE: The patient pushed with contractions for approximately 30 minutes with good descent. The head delivered over intact perineum in occiput anterior position. Anterior shoulder delivered easily followed by posterior shoulder and the remaining body. A loose body cord x2 was noted and reduced after delivery. The baby was placed on maternal chest and evaluated by awaiting nursery staff. Baby was pink, crying, and moving all extremities after delivery. The umbilical cord was clamped and cut after 60 seconds and no longer pulsating. The umbilical cord gases were obtained. The placenta was removed with gentle traction on the umbilical cord. It was examined and found to be intact with 3-vessel cord. The perineum was examined and she had a first-degree laceration that was repaired with 3-0 Vicryl in the usual fashion. The uterus was firm and below the umbilicus and the bleeding was light. She tolerated the procedure well, was given care instructions. ZAK / PARTH /[id number] MTDD
[2019-08-29] MEDS: Ibuprofen 800 MG Tab PO PRN ×2 (08:52→15:17)
[2019-08-29] MEDS: Acetaminophen 500 MG Tab PO PRN ×2 (12:50→18:55)
[2019-08-30] MEDS: Ibuprofen 800 MG Tab PO PRN (04:31)
--- NOTE | 2019-08-30 08:08 | PCM.PNPP ---
- General Info Date of Service: 08/30/19 Functional Status: Reports: Pain Controlled, Tolerating Diet, Ambulating, Urinating - Review of Systems General: Reports: No Symptoms HEENT: Reports: No Symptoms Pulmonary: Reports: No Symptoms Cardiovascular: Reports: No Symptoms Gastrointestinal: Reports: No Symptoms Genitourinary: Reports: No Symptoms Musculoskeletal: Reports: No Symptoms Skin: Reports: No Symptoms Neurological: Reports: No Symptoms Psychiatric: Reports: No Symptoms - General Info Date of Service: 08/30/19 - Patient Data Vital Signs - Most Recent: Last Vital Signs Temp 36.6 C 08/30/19 04:00 Pulse 63 08/30/19 04:00 Resp 16 08/30/19 04:00 BP 95/48 L 08/30/19 04:00 Pulse Ox 98 08/30/19 04:00 Weight - Most Recent: 82.554 kg Lab Results - Last 24 Hours: Laboratory Results - last 24 hr 08/30/19 Range/Units 05:27 Hgb 9.9 L (12.0-16.0) g/dL Hct 30.7 L (36.0-46.0) % Med Orders - Current: Current Medications Acetaminophen (Tylenol Extra Strength) 500 mg PO Q4H PRN PRN Reason: Pain Acetaminophen (Tylenol Extra Strength) 1,000 mg PO Q4H PRN PRN Reason: Pain Last Admin: 08/29/19 18:55 Dose: 1,000 mg Documented by: Benzocaine/Menthol (Dermoplast Pain Relief 20%-0.5% [place]) 78 gm TOP ASDIRECTED PRN PRN Reason: Perineal Comfort Measure Bisacodyl (Dulcolax) 10 mg RECTAL ONETIME PRN PRN Reason: Constipation Butorphanol Tartrate (Stadol) 1 mg IVPUSH Q1H PRN PRN Reason: Pain Carboprost Tromethamine (Hemabate Ds) 250 mcg IM ASDIRECTED PRN PRN Reason: Post Hemorrhage Docusate Sodium (Colace) 100 mg PO BID PRN PRN Reason: Constipation Emollient Ointment (Lansinoh Hpa) 0 gm TOP ASDIRECTED PRN PRN Reason: Sore Nipples Lactated Ringer's (Ringers, Lactated) 1,000 mls @ 150 mls/hr IV ASDIRECTED GIUSEPPE Last Admin: 08/29/19 02:01 Dose: 999 mls/hr Documented by: Oxytocin/Sodium Chloride (Oxytocin 30 Unit/500 Ml-Ns) 30 unit in 500 mls @ 999 mls/hr IV TITRATE GIUSEPPE Last Admin: 08/29/19 05:01 Dose: 999 mls/hr Documented by: Tranexamic Acid 1,000 mg/ (Sodium Chloride) 110 mls @ 660 mls/hr IV ONETIME PRN PRN Reason: Bleeding Ibuprofen (Motrin) 400 mg PO Q4H PRN PRN Reason: Pain Ibuprofen (Motrin) 800 mg PO Q6H PRN PRN Reason: Pain Last Admin: 08/30/19 04:31 Dose: 800 mg Documented by: Lidocaine HCl (Xylocaine 1%) 50 ml INJECT ONETIME PRN PRN Reason: Laceration repair Methylergonovine Maleate (Methergine) 0.2 mg IM ASDIRECTED PRN PRN Reason: Post Hemorrhage Misoprostol (Cytotec) 200 mcg PO ONETIME PRN PRN Reason: Post Hemorrhage Nalbuphine HCl (Nubain) 10 mg IVPUSH Q1H PRN PRN Reason: Pain (severe 7-10) Ondansetron HCl (Zofran) 4 mg IVPUSH Q4H PRN PRN Reason: Nausea/Vomiting Last Admin: 08/29/19 02:54 Dose: 4 mg Documented by: Sodium Chloride (Saline Flush) 10 ml FLUSH ASDIRECTED PRN PRN Reason: Keep Vein Open Sodium Chloride (Saline Flush) 2.5 ml FLUSH ASDIRECTED PRN PRN Reason: Keep Vein Open Sodium Chloride (Normal Saline) 10 ml IV ASDIRECTED PRN PRN Reason: IV Use Sterile Water (Sterile Water For Irrigation) 1,000 ml IRR ASDIRECTED PRN PRN Reason: delivery Last Admin: 08/29/19 05:05 Dose: 1,000 ml Documented by: Galo Montoya) 1 pad TOP ASDIRECTED PRN PRN Reason: comfort care Discontinued Medications Fentanyl (Sublimaze) Confirm Administered Dose 100 mcg .ROUTE .STK-MED ONE Stop: 08/29/19 01:47 Last Admin: 08/29/19 08:56 Dose: Not Given Documented by: Ropivacaine (Naropin 0.2%) Confirm Administered Dose 100 mls @ as directed .ROUTE .STK-MED ONE Stop: 08/29/19 01:48 Last Admin: 08/29/19 08:57 Dose: Not Given Documented by: - Infant Interaction Disposition, : [place] in Room with Family Infant Interaction: Holding Infant Feeding: Breastfed ; Nursed Well Support Person: - Recovery Exam Fundal Tone: Firm Fundal Level: 1 Fingerbreadths Below Umbilicus Fundal Placement: Midline Lochia Amount: Scant Lochia Color: Rubra/Red Perineum Description: Intact, Minimal Bruising/Swelling Other Perinuem Description: 1st degree laceration Episiotomy/Laceration: Approximated Bladder Status: Voiding Urinary Elimination: Voided - Exam General: Alert, Oriented Neck: Supple Lungs: Normal Respiratory Effort GI/Abdominal Exam: Normal Bowel Sounds, Soft, Non-Tender Extremities: Non-Tender, No Pedal Edema Skin: Warm, Dry, Intact Neurological: No New Focal Deficit - Problem List & Annotations (1) Vaginal delivery SNOMED Code(s): 225493435 Code(s): O80 - ENCOUNTER FOR FULL-TERM UNCOMPLICATED DELIVERY Status: Acute Current Visit: No - Problem List Review Problem List Initiated/Reviewed/Updated: Yes - Assessment Assessment:: PPD#1 after , stable minimal lochia, tolerating regular diet, well. Would like to go home today if baby is discharged. Waiting for baby to urinate - Plan Plan:: Dismiss to home, discharge instructions reviewed.
[2019-08-30 09:29] VITALS: BP 91/59; PULSE 67
== END 2019-08-30 11:45 | disposition home or self-care (01) | DRG 560 ==
LOC: MW.OBCHECK 22:57 → MW.OB 23:06 → MW.OBCHECK 08-29 00:39 → OBSVTOIN 08-29 04:47 → MW.OB 08-29 09:02
PROVIDERS: ADMIT Obstetrics & Gynecology; ATTEND Obstetrics & Gynecology
PROC: 10E0XZZ Delivery of Products of Conception, External Approach (ICD-10-PCS; principal; 2019-08-29)
PROC: 10907ZC Drainage of Amniotic Fluid, Therapeutic from Products of Conception, Via Natural or Artificial Opening (ICD-10-PCS; 2019-08-29)
PROC: 0HQ9XZZ Repair Perineum Skin, External Approach (ICD-10-PCS; 2019-08-29)
PROC: 3E0R3BZ Introduction of Anesthetic Agent into Spinal Canal, Percutaneous Approach (ICD-10-PCS; 2019-08-29)
PROC: 00HU33Z Insertion of Infusion Device into Spinal Canal, Percutaneous Approach (ICD-10-PCS; 2019-08-29)
DX: O69.81X0 Labor and delivery complicated by cord around neck, without compression, not applicable or unspecified (principal); O09.813 Supervision of pregnancy resulting from assisted reproductive technology, third trimester; Z3A.39 39 weeks gestation of pregnancy; Z37.0 Single live birth; O76 Abnormality in fetal heart rate and rhythm complicating labor and delivery; O70.0 First degree perineal laceration during delivery
CPT/HCPCS: 01967; 36415; 51702; 59025; 59409; 85014; 85018; 85027; 86592; 86593; 86850; 86900; 86901; A9270-GY; J2405; J2590; J7120